=== PATIENT | female | born 2000 | race Two or more races ===

== ENCOUNTER 2022-12-06 12:03 | Observation (INO) | payer MEDICAID ==
[2022-12-06 12:41] LABS: Hematocrit 33.9 % (36.0-46.0); Hemoglobin 11.8 g/dL (12.2-16.2); Mean Corpuscular Hemoglobin 30.5 pg (28.0-32.0); Mean Corpuscular Hgb Conc. 34.7 g/dL (32.0-36.0); Mean Corpuscular Volume 87.9 fL (80.0-100.0); Red Blood Cells 3.86 10^6/uL (4.0-5.20); Red Cell Distribution Width 13.7 % (11.8-14.3); White Blood Cell 13.6 10^3/uL (4.4-10.8)
[2022-12-06 12:53] LABS: Urine Bacteria FEW /hpf (None Seen); Urine Blood Negative /uL (Negative); Urine Clarity HAZY (Clear); Urine Color Yellow (Yellow); Urine Hyaline Cast FEW /lpf (0 - 2); Urine Mucus FEW (None Seen); Urine Protein, UAD TRACE (Negative); Urine Specific Gravity 1.013 (1.001-1.035); Urine Urobilinogen Normal (Negative); Urine WBC 56 /hpf (0 - 5)
[2022-12-06 12:55] LABS: INR 0.98 (0.9-1.15); Partial Thromboplastin Time 28.9 SEC (24.5-34.5); Prothrombin Time 10.3 sec (9.3-11.8)
[2022-12-06 13:05] LABS: Band Neutrophils % (manual) 0; Basophils % (manual) 0 (0.0-2.0); Blast Cells 0; Eosinophils % (manual) 0 (0-7); Metamyelocytes % 0; Promyelocytes % 0; Reactive Lymphocytes 0
[2022-12-06 13:07] LABS: Amphetamine Screen, Urine Neg (NEGATIVE); Barbiturate Scree,Urine Neg (NEGATIVE); Benzodiazephine Screen, Urine Neg (NEGATIVE); Cannabinoid Screen, Urine Neg (NEGATIVE); Cocaine Screen, Urine Neg (NEGATIVE); Creatinine, Urine 103.03 mg/dL (30.0-125.0); Opiate Scree,Urine Neg (NEGATIVE); Phencyclidine Screen, Urine Neg (NEGATIVE); Urine Protein/Creatinine Ratio 0.2
[2022-12-06 13:11] LABS: Alanine Aminotransferase 10 U/L (7-40); Albumin 4.1 g/dL (3.2-4.8); Alkaline Phosphatase 102 U/L (46-116); Anion Gap 7 (5-15); Aspartate Aminotransferase 11 U/L (13-40); Bilirubin, Total 0.4 mg/dL (0.2-1.0); Carbon Dioxide 22 mmol/L (20-30); Chloride 107 mmol/L (98-107); Glucose 85 mg/dL (74-106); Potassium 3.7 mmol/L (3.5-5.1); Sodium 136 mmol/L (136-145); Total Protein 6.5 g/dL (5.7-8.2); Uric Acid 3.9 mg/dL (3.1-7.8)
[2022-12-06 13:16] LABS: BUN/Creatinine Ratio 8.3 (10.0-20.0); Blood Urea Nitrogen < 5 mg/dL (9-23)
[2022-12-06 13:33] LABS: Lymphocytes % (manual) 13 (10.0-50.0); Monocytes % (manual) 5 (0-12); Myelocytes % 1; Platelet Estimate Adequate
[2022-12-06] MEDS ORDERED: PREN-96 PO (13:49)
[2022-12-06] MEDS ORDERED: CEPH250C PO (13:57)
== END 2022-12-06 14:00 | disposition home or self-care (01) ==
LOC: UNDOADMOB 12:03 → LDRP 12:03 → UNDODISOB 14:00
PROVIDERS: ADMIT Obstetrics & Gynecology; ATTEND Obstetrics & Gynecology
DX: O26.893 Other specified pregnancy related conditions, third trimester (principal); R03.0 Elevated blood-pressure reading, without diagnosis of hypertension; O62.9 Abnormality of forces of labor, unspecified; O23.43 Unspecified infection of urinary tract in pregnancy, third trimester; Z3A.37 37 weeks gestation of pregnancy; Z79.899 Other long term (current) drug therapy
CPT/HCPCS: 36415; 59025; 76818; 80053; 80307; 81001; 81002; 82570; 84156; 84550; 85007; 85027; 85610; 85730; 94760; G0378

== ENCOUNTER 2022-12-11 21:25 | Observation (INO) | payer MEDICAID ==
[~2022-12-11] VITALS: Ht 172.7 cm; Wt 95.3 kg
[~2022-12-11 21:25] MED LIST: CEPH250C PO; PREN-96 PO
== END 2022-12-11 23:40 | disposition home or self-care (01) ==
LOC: LDRP 21:25
PROVIDERS: ADMIT Obstetrics & Gynecology; ATTEND Obstetrics & Gynecology
DX: O13.3 Gestational [pregnancy-induced] hypertension without significant proteinuria, third trimester (principal); Z3A.37 37 weeks gestation of pregnancy
CPT/HCPCS: 59025; 76818; 81002; 94760; G0378

== ENCOUNTER 2022-12-26 12:16 | Observation (INO) | payer MEDICAID ==
[2022-12-26 13:21] LABS: Protein, Urine < 6.0 mg/dL (0.0-11.9)
[2022-12-26 13:24] LABS: Creatinine, Urine 21.06 mg/dL (30.0-125.0); Urine Protein/Creatinine Ratio 0.28
[2022-12-26 13:26] LABS: Urine Bacteria FEW /hpf (None Seen); Urine Blood Negative /uL (Negative); Urine Clarity HAZY (Clear); Urine Color Straw (Yellow); Urine Hyaline Cast FEW /lpf (0 - 2); Urine Protein, UAD Negative (Negative); Urine Specific Gravity 1.004 (1.001-1.035); Urine Urobilinogen Normal (Negative); Urine WBC 58 /hpf (0 - 5)
[2022-12-26 13:27] LABS: Amphetamine Screen, Urine Neg (NEGATIVE)
[2022-12-26 13:28] LABS: Barbiturate Scree,Urine Neg (NEGATIVE); Benzodiazephine Screen, Urine Neg (NEGATIVE); Cocaine Screen, Urine Neg (NEGATIVE)
[2022-12-26 13:29] LABS: Cannabinoid Screen, Urine Neg (NEGATIVE); Opiate Scree,Urine Neg (NEGATIVE); Phencyclidine Screen, Urine Neg (NEGATIVE)
[2022-12-26 13:48] LABS: Basophils # (auto) 0 10 ^3/uL (0-0.2); Basophils % (auto) 0.1 % (0.0-2.0); Eosinophils # (auto) 0 10 ^3/uL (0-0.8); Eosinophils % (auto) 0.3 % (0.0-7.0); Hematocrit 35.5 % (36.0-46.0); Hemoglobin 12.1 g/dL (12.2-16.2); Lymphocytes # (auto) 1.4 10 ^3/uL (0.4-5.4); Lymphocytes % (auto) 9.9 % (10.0-50.0); Mean Corpuscular Hemoglobin 30.2 pg (28.0-32.0); Mean Corpuscular Volume 88.8 fL (80.0-100.0); Monocytes # (auto) 0.9 10 ^3/uL (0-1.3); Monocytes % (auto) 6.5 % (0.0-12.0); Neutrophils # (auto) 11.8 10 ^3/uL (1.6-8.6); Neutrophils % (auto) 83.2 % (37.0-80.0); Nucleated Red Blood Cells % 0.1 %; Red Blood Cells 3.99 10^6/uL (4.0-5.20); Red Cell Distribution Width 13.6 % (11.8-14.3); White Blood Cell 14.2 10^3/uL (4.4-10.8)
[2022-12-26 13:56] LABS: INR 0.98 (0.9-1.15); Partial Thromboplastin Time 28.7 SEC (24.5-34.5); Prothrombin Time 10.3 sec (9.3-11.8)
[2022-12-26 14:29] LABS: Alanine Aminotransferase 12 U/L (7-40); Albumin 4.2 g/dL (3.2-4.8); Alkaline Phosphatase 126 U/L (46-116); Anion Gap 8 (5-15); Aspartate Aminotransferase < 8 U/L (13-40); BUN/Creatinine Ratio 10.2 (10.0-20.0); Bilirubin, Total 0.5 mg/dL (0.2-1.0); Blood Urea Nitrogen 6 mg/dL (9-23); Calcium 9.3 mg/dL (8.7-10.4); Carbon Dioxide 23 mmol/L (20-30); Chloride 105 mmol/L (98-107); Potassium 4.1 mmol/L (3.5-5.1); Sodium 136 mmol/L (136-145); Total Protein 6.3 g/dL (5.7-8.2); Uric Acid 3.9 mg/dL (3.1-7.8)
[2022-12-27 07:07] LABS: RPR Non Reactive (Non Reactive)
[2022-12-28 20:06] LABS: Treponema pallidum Ab (FTA-Ab) Non Reactive (Non Reactive)
== END 2022-12-26 15:15 | disposition home or self-care (01) ==
LOC: LDRP 12:16 → UNDOADMOB 12:16 → LDRP 12:28
PROVIDERS: ADMIT Obstetrics & Gynecology; ATTEND Obstetrics & Gynecology
DX: O36.8330 Maternal care for abnormalities of the fetal heart rate or rhythm, third trimester, not applicable or unspecified (principal); Z3A.39 39 weeks gestation of pregnancy; Z79.899 Other long term (current) drug therapy
CPT/HCPCS: 36415; 59025; 76818; 80053; 80307; 81001; 81002; 82570; 84156; 84550; 85025; 85379; 85610; 85730; 86592; 86850; 86900; 86901; G0378

== ENCOUNTER 2022-12-26 20:58 | Inpatient (IN) | payer MEDICAID ==
[~2022-12-26] VITALS: Ht 172.7 cm; Wt 97.1 kg
[2022-12-26] MEDS ORDERED: PHISODERM TOP SOLN 240ML BTL TOP PRN (21:15)
[2022-12-26] MEDS ORDERED: LIDOCAINE 2%HCL (LOCAL ANESTH.) INJ 20ML MDV IJ PRN (21:15)
[2022-12-26] MEDS ORDERED: PROMETHAZINE HCL 25 MG/ML 1ML IV PRN (21:15)
[2022-12-26] MEDS ORDERED: DERMOPLAST 60ML BOTTLE TOP PRN (21:15)
[2022-12-26] MEDS ORDERED: WITCH HAZEL-GLYCERIN PAD TOP PRN (21:15)
[2022-12-26] MEDS ORDERED: PROMETHAZINE HCL 25 MG/ML 1ML IM PRN (21:45)
[2022-12-26] MEDS ORDERED: TRANEXAMIC ACID 1,000 MG in SODIUM CHL 0.9% 100 ML IV PRN (21:45)
[2022-12-26] MEDS ORDERED: ACETAMINOPHEN 325 MG TAB PO PRN (21:45)
[2022-12-26] MEDS ORDERED: fentaNYL CITRATE 100 MCG/2 ML VL IV PRN (21:45)
[2022-12-26] MEDS ORDERED: CARBOPROST TROMETHAMINE 250 MCG/1ML VIAL IM PRN (21:45)
[2022-12-26] MEDS ORDERED: miSOPROStol 100 mcg TAB SL PRN (21:45)
[2022-12-26] MEDS ORDERED: diphenhdrAMINE HCL 50 MG/1 ML VL IV PRN (21:45)
[2022-12-26] MEDS ORDERED: ONDANSETRON HCL 4 MG/2 ML VIAL IV PRN (21:45)
[2022-12-26] MEDS ORDERED: MINERAL OIL TOPICAL 10ml TOP PRN (21:45)
[2022-12-26] MEDS: LACTATED RINGER'S 1,000 ML IV SCH (21:55)
[2022-12-26 23:18] LABS: Protein, Urine 10.6 mg/dL (0.0-11.9)
[2022-12-26 23:21] LABS: Creatinine, Urine 59.58 mg/dL (30.0-125.0); Urine Protein/Creatinine Ratio 0.18
[2022-12-26] MEDS ORDERED: ACETAMINOPHEN 500 MG TAB PO PRN (23:30)
[2022-12-27] MEDS ORDERED: DIPHENOXYLATE W/ATROPINE 2.5 MG TAB PO SCH
[2022-12-27] MEDS: LACTATED RINGER'S 1,000 ML IV SCH ×4 (00:13→21:43)
[2022-12-27] MEDS: miSOPROStol 50 MCG per PRE-CUT 1/2 TAB PO PRN ×6 (00:28→21:39)
[2022-12-27] MEDS ORDERED: NALOXONE HCL 0.4 MG/ML VIAL IV ONE (17:00)
[2022-12-27] MEDS ORDERED: ROPIVACAINE HCL 200 ML EPI SCH ×2 (17:00→22:00)
[2022-12-27] MEDS ORDERED: fentaNYL CITRATE 100 MCG/2 ML VL IV ONE (17:00)
[2022-12-27] MEDS ORDERED: Lidocaine W-Epinephrine 1.5%-1:200,000 INJ 10ml Vial IJ ONE (17:00)
[2022-12-27] MEDS ORDERED: ePHEDrine SULFATE 50 MG/ML AMP IV ONE (17:00)
[2022-12-27] MEDS ORDERED: LIDOCAINE HCL 2 %PF INJ 10ML AMP IJ ONE (19:30)
[2022-12-27] MEDS ORDERED: TERBUTALINE SULFATE 1 MG/ML 1ML VIAL SC PRN (23:30)
[2022-12-28] VITALS (21 sets, daily range): BP systolic 116–137; BP diastolic 70–90; PULSE 88–118; RESP 15–20; TEMP 97.5–98.5; O2SAT 97–98
[2022-12-28] MEDS ORDERED: LACT. RINGERS/OXYTOCIN 20UNITS 1,000 ML IV SCH (01:40)
[2022-12-28] MEDS ORDERED: LACT. RINGERS/OXYTOCIN 20UNITS 500 ML IV ONE ×2 (01:45→02:15)
[2022-12-28] MEDS ORDERED: MINERAL OIL TOPICAL 10ml TOP ONE (01:57)
[2022-12-28] MEDS ORDERED: MAGNESIUM SULFATE 40MG/ML 1,000 ML IV SCH (02:00)
[2022-12-28] MEDS ORDERED: LORazepam 2MG/ML-1ML VIAL IV ONE (02:00)
[2022-12-28] MEDS ORDERED: MAGNESIUM SULFATE 100 ML IV ONE (02:00)
[2022-12-28] MEDS ORDERED: CARBOPROST TROMETHAMINE 250 MCG/1ML VIAL IM PRN (02:45)
[2022-12-28] MEDS ORDERED: miSOPROStol 100 mcg TAB SL PRN (02:45)
[2022-12-28] MEDS ORDERED: TRANEXAMIC ACID 1,000 MG in SODIUM CHL 0.9% 100 ML IV ONE (02:45)
[2022-12-28] MEDS ORDERED: miSOPROStol 100 mcg TAB PR PRN (02:45)
[2022-12-28] MEDS ORDERED: ACETAMINOPHEN 325 MG TAB PO PRN (05:30)
[2022-12-28] MEDS: IBUPROFEN 600 MG TAB PO PRN ×2 (10:01→20:50)
[2022-12-28 11:58] LABS: Basophils # (auto) 0.1 10 ^3/uL (0-0.2); Basophils % (auto) 0.3 % (0.0-2.0); Eosinophils # (auto) 0 10 ^3/uL (0-0.8); Hematocrit 31.9 % (36.0-46.0); Hemoglobin 10.7 g/dL (12.2-16.2); Lymphocytes # (auto) 1.2 10 ^3/uL (0.4-5.4); Lymphocytes % (auto) 5.5 % (10.0-50.0); Mean Corpuscular Hgb Conc. 33.6 g/dL (32.0-36.0); Mean Corpuscular Volume 89.5 fL (80.0-100.0); Monocytes # (auto) 1.3 10 ^3/uL (0-1.3); Monocytes % (auto) 6.1 % (0.0-12.0); Neutrophils % (auto) 88.1 % (37.0-80.0); Red Blood Cells 3.56 10^6/uL (4.0-5.20); Red Cell Distribution Width 13.8 % (11.8-14.3); White Blood Cell 21.6 10^3/uL (4.4-10.8)
[2022-12-28] MEDS ORDERED: DOCUSATE SOD 100 MG CAP PO SCH (22:00)
[2022-12-29] MEDS ORDERED: TETANUS-DIPTH-ACEL PERTUSSIS 0.5ML SYR Tdap IM ONE (02:15)
[2022-12-29 02:50] VITALS: BP 126/78; PULSE 79; RESP 17; TEMP 98.4; O2SAT 98
[2022-12-29 07:15] VITALS: BP 128/79; PULSE 90; RESP 17; RESP 18; TEMP 97.8; O2SAT 100
[2022-12-29 11:00] VITALS: BP 132/70; PULSE 91; RESP 18; TEMP 98.1; O2SAT 100
[2022-12-29 15:00] VITALS: BP 130/76; PULSE 89; RESP 18; TEMP 98.5; O2SAT 98
[2022-12-29 19:00] VITALS: BP 142/73; PULSE 94; RESP 18; TEMP 98.3
== END 2022-12-29 20:35 | disposition home or self-care (01) | DRG 560 ==
LOC: LDRP 20:58
PROVIDERS: ADMIT Obstetrics & Gynecology; ATTEND Obstetrics & Gynecology
PROC: 3E0R3BZ Introduction of Anesthetic Agent into Spinal Canal, Percutaneous Approach (ICD-10-PCS; 2022-12-27)
PROC: 00HU33Z Insertion of Infusion Device into Spinal Canal, Percutaneous Approach (ICD-10-PCS; 2022-12-27)
PROC: 10E0XZZ Delivery of Products of Conception, External Approach (ICD-10-PCS; principal; 2022-12-28)
PROC: 0KQM0ZZ Repair Perineum Muscle, Open Approach (ICD-10-PCS; 2022-12-28)
DX: O13.4 Gestational [pregnancy-induced] hypertension without significant proteinuria, complicating childbirth (principal); Z37.0 Single live birth; D64.9 Anemia, unspecified; O48.0 Post-term pregnancy; O69.1XX0 Labor and delivery complicated by cord around neck, with compression, not applicable or unspecified; O77.0 Labor and delivery complicated by meconium in amniotic fluid; O70.1 Second degree perineal laceration during delivery; O90.81 Anemia of the puerperium; F32.A Depression, unspecified; F41.9 Anxiety disorder, unspecified; Z3A.40 40 weeks gestation of pregnancy
CPT/HCPCS: 36415; 59025; 59200; 59409; 62282; 81002; 82570; 83735; 84156; 85025; 86850; 86900; 86901; 94760; 94762; 96360; 96361; 96365; 96366; 96374; G0378; J2405; J2590